=== PATIENT | female | born 1985 | race Caucasian/White ===

== ENCOUNTER 2021-01-24 10:47 | Emergency (ER) | payer OTHER ==
[2021-01-24 12:15] LABS: HEMOGLOBIN 13.5 gm/dl (12.3-15.3); RED BLOOD COUNT 4.08 M/UL (4.00-5.10); WHITE BLOOD COUNT 6.7 K/UL (4.5-11.0)
[2021-01-24 12:39] LABS: BUN/CREATININE RATIO 17 (0-10)
== END 2021-01-24 14:52 | disposition home or self-care (01) ==
LOC: ER1 10:47
PROVIDERS: Nurse Practitioner
DX: N92.0 Excessive and frequent menstruation with regular cycle (principal); F17.290 Nicotine dependence, other tobacco product, uncomplicated; K21.9 Gastro-esophageal reflux disease without esophagitis; Z79.899 Other long term (current) drug therapy
CPT/HCPCS: 76830; 80053; 81001; 84146; 84439; 84443; 84703; 85025; 99284